=== PATIENT | male | born 2005 | race Two or more races ===

== ENCOUNTER 2023-12-12 02:26 | Emergency (ER) | payer OTHER ==
[~2023-12-12] VITALS: Ht 157.5 cm; Wt 68.0 kg
[2023-12-12 03:44] VITALS: BP 124/78; TEMP 98.1; O2SAT 98
== END 2023-12-12 23:00 | disposition home or self-care (01) ==
LOC: EDSEX → ER 02:27
DX: Z02.89 Encounter for other administrative examinations (principal)
CPT/HCPCS: 36415; 86706